=== PATIENT | female | born 1980 | race African-American/Black ===

== ENCOUNTER 2016-07-19 10:48 | Emergency (ER) | payer MEDICAID, OTHER ==
[~2016-07-19] VITALS: Ht 152.4 cm; Wt 134.5 kg
[~2016-07-19 10:48] MED LIST: IBUP800T23 PO; PRED5TAB PO
[2016-07-19 10:50] VITALS: BP 128/76; PULSE 78; RESP 20; TEMP 97.3; O2SAT 100
[2016-07-19] MEDS ORDERED: IBUP800T23 PO (11:23)
[2016-07-19] MEDS ORDERED: PRED5TAB PO (11:23)
--- NOTE | 2016-07-19 11:26 | PD ---
HPI Chief Complaint: Flank/Kidney Pain Time Seen by Provider: 10:58 Travel History International Travel<30 days: No Contact w/Intl Traveler<30days: No Traveled to known affect area: No History of Present Illness HPI 35-year-old female complains of right flank pain and urinary frequency. Patient states that the symptoms started a week ago. Patient states the pain is cramping pain and sharp pain localized to the right flank area. Patient denies any pain radiation. Patient denies any dysuria. Patient denies any fever chills. On a scale of 1-10 the pain is a 7. Patient denies any history kidney stone. Patient denies any vaginal discharge or bleeding. Patient denies any nausea vomiting diarrhea. PFSH Past Medical History Autoimmune Disease: Yes (lupus) Cerebrovascular Accident: No Diabetes: No Diminished Hearing: No Gastrointestinal Disorders: Yes (IBS) GERD: Yes (2000) Musculoskeletal: Yes (bilateral knee arthritis, lupus) Immunizations Current: No Myocardial Infarction: No Seizures: Yes ?: Not LMP: 06/2016 : 2 Para: 1 Miscarriage: 1 Past Surgical History Abdominal Surgery: Yes (FOR IBS 2013) Social History Alcohol Use: No Tobacco Use: No Substance Use: No Allergies-Medications (Allergen,Severity, Reaction): Coded Allergies: Bactrim (Verified Allergy, Severe, 07/19/16) Percocet (Verified Allergy, Intermediate, NAUSEA AFFECTS HEART RATE PER PT , 07/19/16) Penicillin (Verified Adverse Reaction, Severe, HIVES, 07/19/16) Reported Meds & Prescriptions Reported Meds & Active Scripts Active Reported Prednisone 5 Mg Tab 5 Mg PO DAILY Ibuprofen 800 Mg Tab 800 Mg PO TID Review of Systems General / Constitutional: No: Fever Eyes: No: Visual changes HENT: No: Headaches Cardiovascular: No: Chest Pain or Discomfort Respiratory: No: Shortness of Breath Gastrointestinal: No: Abdominal Pain Genitourinary: Positive: Frequency, No: Dysuria Musculoskeletal: No: Pain Skin: No Rash Neurologic: No: Weakness Psychiatric: No: Depression Endocrine: No: Polydipsia Hematologic/Lymphatic: No: Easy Bruising Physical Exam Narrative GENERAL: Well-nourished, well-developed patient. SKIN: Focused skin assessment warm/dry. HEAD: Normocephalic. EYES: No scleral icterus. No injection or drainage. NECK: Supple, trachea midline. No JVD or lymphadenopathy. CARDIOVASCULAR: Regular rate and rhythm without murmurs, gallops, or rubs. RESPIRATORY: Breath sounds equal bilaterally. No accessory muscle use. GASTROINTESTINAL: Abdomen soft, non-tender, nondistended. MUSCULOSKELETAL: No cyanosis, or edema. BACK: Patient has moderate tenderness on palpation right flank area. Neurologic exam normal. Data Data Last Documented VS Vital Signs Date Time Temp Pulse Resp B/P Pulse Ox O2 Delivery O2 Flow Rate FiO2 07/19/16 11:20 16 07/19/16 10:50 97.3 78 128/76 100 Room Air Orders Urinalysis - C+S If Indicated (07/19/16 11:03) Ct Abd/Pel W/O Iv Contrast (07/19/16 11:03) Ed Urine Pregnancytest Poc (07/19/16 11:03) Labs Laboratory Tests Test 07/19/16 11:35 Urine Color YELLOW Urine Turbidity HAZY Urine pH 6.5 Urine Specific [place] 1.029 Urine Protein TRACE mg/dL Urine Glucose (UA) NEG mg/dL Urine Ketones NEG mg/dL Urine Occult Blood NEG Urine Nitrite NEG Urine Bilirubin NEG Urine Urobilinogen LESS THAN 2.0 MG/DL Urine Leukocyte Esterase LARGE Urine RBC 2 /hpf Urine WBC 3 /hpf Urine Squamous Epithelial 11 /hpf Cells Urine Mucus FEW /lpf Microscopic Urinalysis Comment CULT NOT INDICATED MDM Medical Decision Making Medical Screen Exam Complete: Yes Emergency Medical Condition: Yes Interpretation(s) Last Impressions Abdomen/Pelvis CT 07/19/16 1103 Signed Impressions: Service Date/Time: Tuesday, July 19, 2016 12:06 - CONCLUSION: 1. No abnormality is identified to explain the right flank pain. No renal stones are identified and there are no findings to indicate urinary obstruction. 2. Very enlarged lobulated uterus likely containing multiple masses. Although incompletely characterized on this examination of the masses are likely multiple uterine fibroids. Patrick Amezcua MD 12:53 PM. UA is negative. Urine test negative. Differential Diagnosis Differential diagnosis including musculoskeletal, UTI, pyelonephritis, nephrolithiasis. Narrative Course 35-year-old female complains of right flank pain and urinary frequency. Diagnosis Primary Impression: Lumbar strain Qualified Code: S39.012A - Lumbar strain, initial encounter Patient Instructions: General Instructions Additional Instructions: Medications as directed. Follow-up with personal physician. Return if worse. Med/Other Pt SpecificInfo: Prescription(s) given Scripts Methocarbamol (Robaxin)750 Mg Pqp080 Mg PO QID #40 TAB Prov:Jose Tamez MD 07/19/16 Meloxicam (Mobic)15 Mg Tab15 Mg PO DAILY #20 TAB Prov:Jose Tamez MD 07/19/16 Disposition: 01 DISCHARGE HOME Condition: Stable Jose Tamez MD Jul 19, 2016 11:26
[2016-07-19 11:52] LABS: BLOOD, URINE NEG (NEG); COMMENT (UR) CULT NOT INDICATED; CULTURE IF INDICATED CULT NOT INDICATED; GLUCOSE,URINE NEG (NEG); KETONE, URINE NEG (NEG); MUCUS URINE FEW /lpf (OCC); NITRITE,URINE NEG (NEG); PH, URINE 6.5 (5.0-8.5); SQUAMOUS EPITHELIAL CELL URINE 11 /hpf (0-5); URINE COLOR YELLOW (YELLW/STRAW)
--- NOTE | 2016-07-19 12:30 | RADRPT ---
EXAM DATE/TIME: 07/19/2016 12:06 [facility] COMPARISON: No previous studies available for comparison. INDICATIONS : Kidney pain, right flank pain. ORAL CONTRAST: No oral contrast ingested. RADIATION DOSE: 13.41 CTDIvol (mGy) MEDICAL HISTORY : Seizures. Lupus. SURGICAL HISTORY : ENCOUNTER: Initial ACUITY: 1 day PAIN SCALE: 7/10 LOCATION: Right flank TECHNIQUE: Volumetric scanning of the abdomen and pelvis was performed. Using automated exposure control and ad justment of the mA and/or kV according to patient size, radiation dose was kept as low as reasonably achievable to obtain optimal diagnostic quality images. FINDINGS: LOWER LUNGS: The visualized lower lungs are clear. LIVER: Homogeneous density without lesion. There is no dilation of the biliary tree. No calcified gallston es. SPLEEN: Normal size without lesion. PANCREAS: Within normal limits. KIDNEYS: Normal in size and shape. There is no mass, stone, or hydronephrosis. ADRENAL GLANDS: Within normal limits. VASCULAR: There is no aortic aneurysm. BOWEL/MESENTERY: The stomach, small bowel, and colon demonstrate no acute abnormality. There is no free intraperitone al air or fluid. The appendix is normal. ABDOMINAL WALL: Within normal limits. RETROPERITONEUM: There is no lymphadenopathy. BLADDER: No wall thickening or mass. REPRODUCTIVE: The uterus is enlarged with a very lobulated contour likely containing multiple masses. INGUINAL: There is no lymphadenopathy or hernia. MUSCULOSKELETAL: No acute osseous abnormality is identified. CONCLUSION: 1. No abnormality is identified to explain the right flank pain. No renal stones are identified and t here are no findings to indicate urinary obstruction. 2. Very enlarged lobulated uterus likely containing multiple masses. Although incompletely characteri zed on this examination of the masses are likely multiple uterine fibroids. Patrick Amezcua MD on July 19, 2016 at 12:25 Board Certified Radiologist. This report was verified electronically.
[2016-07-19] MEDS ORDERED: MOBI15TA PO (12:55)
[2016-07-19] MEDS ORDERED: ROBA750T PO (12:55)
== END 2016-07-19 14:05 | disposition home or self-care (01) ==
LOC: NEPD 10:48
DX: S39.012A Strain of muscle, fascia and tendon of lower back, initial encounter (principal); X50.9XXA Other and unspecified overexertion or strenuous movements or postures, initial encounter
CPT/HCPCS: 74176; 81001; 84703

== ENCOUNTER 2017-07-30 11:47 | Observation (INO) | payer MEDICAID ==
[~2017-07-30] VITALS: Ht 152.4 cm; Wt 135.0 kg
[~2017-07-30 11:47] MED LIST changes: +IBUP1TAB7 PO; -IBUP800T23 PO; +MOBI15TA PO; +ROBA750T PO
[2017-07-30 11:53] VITALS: BP 144/69; PULSE 91; RESP 20; TEMP 98.3; O2SAT 100
--- NOTE | 2017-07-30 12:24 | PD ---
HPI Chief Complaint: Chest Pain Time Seen by Provider: 12:04 Travel History International Travel<30 days: No Contact w/Intl Traveler<30days: No Traveled to known affect area: No History of Present Illness HPI This is a 36-year-old female with history of lupus, obesity, who presents for evaluation of chest pain. Symptoms started 1 hour prior to arrival and the patient was at [employer] singing. She describes it as a sharp/pressure pain in the substernal region which is intermittent but worse with movement. Currently she is without any pain. She reports some fatigue and nausea as well. She reports that she has had a dry cough for 1 week. She denies fevers, chills, diaphoresis, abdominal pain. She has never had this type of discomfort before. She denies any known history of coronary artery disease. Per chart review it appears that the patient did have a stress test 10 years ago which was normal. She has no other complaints at this time. PFSH Past Medical History Arthritis: Yes (OSTEOARTHRITIS) Autoimmune Disease: Yes (lupus) Cerebrovascular Accident: No Diabetes: No Diminished Hearing: No Gastrointestinal Disorders: Yes (IBS) GERD: Yes (2000) Musculoskeletal: Yes (bilateral knee arthritis, lupus) Immunizations Current: No Myocardial Infarction: No Seizures: Yes : 2 Para: 1 Miscarriage: 1 : 0 Past Surgical History Abdominal Surgery: Yes (FOR IBS 2013) Social History Alcohol Use: No Tobacco Use: No Substance Use: No Allergies-Medications (Allergen,Severity, Reaction): Coded Allergies: sulfamethoxazole (Verified Allergy, Severe, 07/30/17) trimethoprim (Verified Allergy, Severe, 07/30/17) acetaminophen (Verified Allergy, Intermediate, NAUSEA AFFECTS HEART RATE PER PT, 07/30/17) oxycodone (Verified Allergy, Intermediate, NAUSEA AFFECTS HEART RATE PER PT, 07/30/17) penicillin G (Verified Adverse Reaction, Severe, HIVES, 07/30/17) Reported Meds & Prescriptions Reported Meds & Active Scripts Active Review of Systems Except as stated in HPI: all other systems reviewed are Neg Physical Exam Narrative GENERAL: Well-developed well-nourished female no acute distress. BMI 58.1. SKIN: Warm and dry. HEAD: Atraumatic. Normocephalic. EYES: Pupils equal and round. No scleral icterus. No injection or drainage. ENT: No nasal bleeding or discharge. Mucous membranes pink and moist. NECK: Trachea midline. No JVD. CARDIOVASCULAR: Regular rate and rhythm. No murmur appreciated. RESPIRATORY: No accessory muscle use. Clear to auscultation. Breath sounds equal bilaterally. GASTROINTESTINAL: Abdomen soft, non-tender, nondistended. Hepatic and splenic margins not palpable. MUSCULOSKELETAL: No obvious deformities. No clubbing. No cyanosis. No edema. NEUROLOGICAL: Awake and alert. No obvious cranial nerve deficits. Motor grossly within normal limits. Normal speech. PSYCHIATRIC: Appropriate mood and affect; insight and judgment normal. Data Data Last Documented VS Vital Signs Date Time Temp Pulse Resp B/P (MAP) Pulse Ox O2 Delivery O2 Flow Rate FiO2 07/30/17 12:35 100 Room Air 07/30/17 12:35 (100) 07/30/17 12:27 98.2 87 15 Orders Orders Electrocardiogram (07/30/17 12:21) Basic Metabolic Panel (Bmp) (07/30/17 12:21) Ckmb (Isoenzyme) Profile (07/30/17 12:21) Complete Blood Count With Diff (07/30/17 12:21) Magnesium (Mg) (07/30/17 12:21) Prothrombin Time / Inr (Pt) (07/30/17 12:21) Act Partial Throm Time (Ptt) (07/30/17 12:21) Troponin I (07/30/17 12:21) Ecg Monitoring (07/30/17 12:21) Bilateral Bp Monitoring (07/30/17 12:21) Iv Access Insert/Monitor (07/30/17 12:21) Oximetry (07/30/17 12:21) Oxygen Administration (07/30/17 12:21) Aspirin Chew (Aspirin Chew) (07/30/17 12:30) Sodium Chloride 0.9% Flush (Ns Flush) (07/30/17 12:30) Chest, Pa & Lat (07/30/17 12:21) Ed Urine Pregnancytest Poc (07/30/17 12:21) Ondansetron Inj (Zofran Inj) (07/30/17 12:30) Admit Order (Ed Use Only) (07/30/17 13:52) Labs Laboratory Tests Test 07/30/17 12:29 White Blood Count 8.5 TH/MM3 Red Blood Count 4.35 MIL/MM3 Hemoglobin 11.8 GM/DL Hematocrit 35.7 % Mean Corpuscular Volume 82.1 FL Mean Corpuscular Hemoglobin 27.2 PG Mean Corpuscular Hemoglobin Concent 33.2 % Red Cell Distribution Width 17.5 % Platelet Count 339 TH/MM3 Mean Platelet Volume 8.5 FL Neutrophils (%) (Auto) 64.2 % Lymphocytes (%) (Auto) 25.7 % Monocytes (%) (Auto) 8.0 % Eosinophils (%) (Auto) 1.7 % Basophils (%) (Auto) 0.4 % Neutrophils # (Auto) 5.5 TH/MM3 Lymphocytes # (Auto) 2.2 TH/MM3 Monocytes # (Auto) 0.7 TH/MM3 Eosinophils # (Auto) 0.1 TH/MM3 Basophils # (Auto) 0.0 TH/MM3 CBC Comment DIFF FINAL Differential Comment Prothrombin Time 10.1 SEC Prothromb Time International Ratio 1.0 RATIO Activated Partial Thromboplast Time 26.8 SEC Blood Urea Nitrogen 8 MG/DL Creatinine 0.86 MG/DL Random Glucose 84 MG/DL Calcium Level 8.9 MG/DL Magnesium Level 2.2 MG/DL Sodium Level 139 MEQ/L Potassium Level 3.9 MEQ/L Chloride Level 104 MEQ/L Carbon Dioxide Level 26.9 MEQ/L Anion Gap 8 MEQ/L Estimat Glomerular Filtration Rate 91 ML/MIN Total Creatine Kinase 59 U/L Troponin I LESS THAN 0.02 NG/ML MDM Medical Decision Making Medical Screen Exam Complete: Yes Emergency Medical Condition: Yes Medical Record Reviewed: Yes Differential Diagnosis Costochondritis, pleurisy, pericarditis, myocarditis, acute coronary syndrome, angina, pulmonary embolism Narrative Course Patient was placed on ECG monitoring pulse oximetry. A 12-lead EKG was obtained revealing sinus rhythm with borderline left axis deviation. Lab work, chest x-ray been ordered. Aspirin has been ordered. Chest x-ray is normal. Initial lab work is reassuring. At this point time, given her risk factors of obesity and lupus, the plan will be to admit the patient into the chest pain center for serial cardiac enzymes and rule out purposes. She is agreeable. Diagnosis Primary Impression: Chest pain Admitting Information Admitting Physician Requests: Moreno Stafford Jul 30, 2017 12:24
[2017-07-30 12:27] VITALS: BP 138/81; PULSE 87; RESP 15; TEMP 98.2; O2SAT 99
[2017-07-30] MEDS ORDERED: ONDANSETRON HCL 4 MG/2 ML VIAL IV PUSH ONE (12:30)
[2017-07-30] MEDS ORDERED: SODIUM CHLORIDE 0.9% FLUSH 10 ML FLUSH IVF PRN (12:30)
[2017-07-30] MEDS ORDERED: ASPIRIN 81 MG CHEW TAB PO ONE (12:30)
[2017-07-30 12:46] LABS: AUTOMATED NEUTROPHIL # 5.5 TH/MM3 (1.8-7.7); BASOPHIL % 0.4 % (0.0-2.0); EOSINOPHIL # 0.1 TH/MM3 (0-0.4); EOSINOPHIL % 1.7 % (0.0-4.0); HEMATOCRIT 35.7 % (35.0-46.0); HEMOGLOBIN 11.8 GM/DL (11.6-15.3); LYMPH % 25.7 % (9.0-44.0); LYMPHOCYTE # 2.2 TH/MM3 (1.0-4.8); MEAN CELL VOLUME 82.1 FL (80.0-100.0); MEAN CORPUSCULAR HEMOGLOBIN 27.2 PG (27.0-34.0); MEAN CORPUSCULAR HGB CONC 33.2 % (32.0-36.0); MEAN PLATELET VOLUME 8.5 FL (7.0-11.0); MONOCYTE # 0.7 TH/MM3 (0-0.9); NEUT % 64.2 % (16.0-70.0); PLATELET COUNT 339 TH/MM3 (150-450); RED BLOOD COUNT 4.35 MIL/MM3 (4.00-5.30); RED CELL DISTRIBUTION WIDTH 17.5 % (11.6-17.2); WHITE BLOOD COUNT 8.5 TH/MM3 (4.0-11.0)
[2017-07-30 13:03] LABS: BICARBONATE 26.9 MEQ/L (21.0-32.0); BLOOD UREA NITROGEN 8 MG/DL (7-18); CALCIUM 8.9 MG/DL (8.5-10.1); CHLORIDE 104 MEQ/L (98-107); CREATININE 0.86 MG/DL (0.50-1.00); GLOMERULAR FILTRATION RATE 91 ML/MIN (>89); GLUCOSE,RANDOM 84 MG/DL (74-106); MAGNESIUM 2.2 MG/DL (1.5-2.5); SODIUM (NA) 139 MEQ/L (136-145)
[2017-07-30 13:05] LABS: PROTHROMBIN TIME - PATIENT 10.1 SEC (9.8-11.6)
[2017-07-30 13:07] LABS: TROPONIN I LESS THAN 0.02 NG/ML (0.02-0.05)
--- NOTE | 2017-07-30 13:29 | RADRPT ---
EXAM DATE/TIME: 07/30/2017 13:13 [facility] COMPARISON: CHEST PA & LAT, August 04, 2014, 13:41. INDICATIONS : Mid sternal chest pain MEDICAL HISTORY : None. SURGICAL HISTORY : None. ENCOUNTER: Initial ACUITY: 1 day PAIN SCORE: 0/10 LOCATION: chest FINDINGS: PA and lateral views of the chest demonstrate the lungs to be symmetrically hypoinflated without evid ence of mass, infiltrate or effusion. The cardiomediastinal contours are unremarkable. Osseous stru ctures are intact. CONCLUSION: Hypoinflation with no acute cardiopulmonary process. Shantanu Peña MD on July 30, 2017 at 13:26 Board Certified Radiologist. This report was verified electronically.
[2017-07-30 14:05] VITALS: O2SAT 99
[2017-07-30] MEDS ORDERED: ONDANSETRON HCL 4 MG/2 ML VIAL IV PUSH PRN (14:15)
[2017-07-30] MEDS ORDERED: NITROGLYCERIN 0.4 MG SL 25 TABS/BTL SL PRN (14:15)
--- NOTE | 2017-07-30 14:41 | HHI.HP ---
HPI Primary Care Physician Isac Hinton DO Chief Complaint Chest pain History of Present Illness 36 year old female with history of lupus presents to ER for further evaluation of chest pain. Onset this morning while signing at [employer]. Location left anterior chest. Characterized quick onset, sharp pain. No radiation. Duration 10 minutes. Associated symptoms nausea, mild dyspnea, and dizziness. Taking a deep breath and movement made pain worse. No known precipitating or relieving factors. Discomfort not similar to past lupus flares. No recent illness. Review of Systems General: No fatigue,weakness, fever, chills, recent illness, or change in appetite. HEENT: No CARRENO, no nasal congestion or drainage, no dysphasia CV: As stated above. No current pressure and pain. No palpitations, intermittent leg pain, or dizziness. RESP: No SOB, cough, wheeze, or recent illness. GI: No nausea, vomiting, bowel changes, diarrhea, constipation, pain, distention , melena, or blood in the stool. : No dysuria, urgency, frequency EXT: No lower leg edema, no paraesthesias MS: No discomfort, injury, or change in ROM NEURO: No difficulty with balance, LOC, motor/sensory deficits PSYCH: No anxiety, depression SKIN: No rashes, no concerning lesions Past Family Social History Allergies: Coded Allergies: sulfamethoxazole (Verified Allergy, Severe, 07/30/17) trimethoprim (Verified Allergy, Severe, 07/30/17) acetaminophen (Verified Allergy, Intermediate, NAUSEA AFFECTS HEART RATE PER PT, 07/30/17) oxycodone (Verified Allergy, Intermediate, NAUSEA AFFECTS HEART RATE PER PT, 07/30/17) penicillin G (Verified Adverse Reaction, Severe, HIVES, 07/30/17) Past Medical History Lupus, OA, bilateral knee pain Past Surgical History Knee surgery Reported Medications Reported Meds & Active Scripts Active Prednisone low dose PRN for lupus flares Active Ordered Medications Current Medications Medications (Trade) Dose Ordered Sig/Terrell Route Start Time Stop Time Status Last Admin (NS Flush) 2 ml UNSCH PRN IVF 07/30/17 12:30 07/30/17 12:36 (NS Flush) 2 ml BID IV FLUSH 07/30/17 21:00 (Zofran Inj) 4 mg Q6H PRN IV PUSH 07/30/17 14:15 (Nitrostat Sl) 0.4 mg Q5M PRN SL 07/30/17 14:15 (Aspirin) 325 mg DAILY PO 07/31/17 09:00 Family History Noncontributory for early onset cardiovascular disease. Social History No known CAD, diabetes, hypertension, or hyperlipidemia. Lifelong nonsmoker. Rare glass of wine. Mother of one daughter age 14. Unemployed. Past cardiac testing Remote exercise testing in early 20s, reported to be unremarkable. Physical Exam Vital Signs Vital Signs Date Time Temp Pulse Resp B/P (MAP) Pulse Ox O2 Delivery O2 Flow Rate FiO2 07/30/17 14:05 99 21 07/30/17 12:35 100 Room Air 07/30/17 12:35 (100) Room Air 07/30/17 12:27 98.2 87 15 138/81 (100) 99 Room Air 07/30/17 12:22 84 17 99 Room Air 07/30/17 11:53 98.3 91 20 144/69 (94) 100 Physical Exam GENERAL: Alert WN, WD, NAD, pleasant, morbidly obese -Tristanian female EYES: Sclera clear, conjunctiva without injection, pupils equal and round ENT: Mucous membranes pink and moist CV: RRR, without murmur, rub, gallop, no JVD, S1-S2 no S3-S4. No carotid bruits. Chest wall pain reproduced with palpation. RESP: Clear lungs throughout bilateral, no crackles, wheeze, rhonchi, symmetrical chest rise, nonlabored, able to speak in full sentences ABD: Soft, NT, ND, no masses, positive bowel tones EXT: Pulses +2x4, trace pedal edema MS: Normal tone x4 extremities, no obvious deformities, full range of motion NEURO: CN II through CN XII grossly intact, motor strength 5/5 PSYCH: A+O x3, pleasant affect, appropriate speech, mood, insight and judgment SKIN: Normal turgor, normal texture, no lesions, no rashes Laboratory Laboratory Tests Test 07/30/17 12:29 07/30/17 14:25 White Blood Count 8.5 Red Blood Count 4.35 Hemoglobin 11.8 Hematocrit 35.7 Mean Corpuscular Volume 82.1 Mean Corpuscular Hemoglobin 27.2 Mean Corpuscular Hemoglobin Concent 33.2 Red Cell Distribution Width 17.5 Platelet Count 339 Mean Platelet Volume 8.5 Neutrophils (%) (Auto) 64.2 Lymphocytes (%) (Auto) 25.7 Monocytes (%) (Auto) 8.0 Eosinophils (%) (Auto) 1.7 Basophils (%) (Auto) 0.4 Neutrophils # (Auto) 5.5 Lymphocytes # (Auto) 2.2 Monocytes # (Auto) 0.7 Eosinophils # (Auto) 0.1 Basophils # (Auto) 0.0 CBC Comment DIFF FINAL Differential Comment Prothrombin Time 10.1 Prothromb Time International Ratio 1.0 Activated Partial Thromboplast Time 26.8 Blood Urea Nitrogen 8 Creatinine 0.86 Random Glucose 84 Calcium Level 8.9 Magnesium Level 2.2 Sodium Level 139 Potassium Level 3.9 Chloride Level 104 Carbon Dioxide Level 26.9 Anion Gap 8 Estimat Glomerular Filtration Rate 91 Total Creatine Kinase 59 Troponin I LESS THAN 0.02 Result Diagram: 07/30/17 1229 07/30/17 1229 Imaging Last 48 hours Impressions Chest X-Ray 07/30/17 1221 Signed Impressions: Service Date/Time: Sunday, July 30, 2017 13:13 - CONCLUSION: Hypoinflation with no acute cardiopulmonary process. Shantanu Peña MD Course EKG NSR, borderline left axis, no st t segment changes Caprini VTE Risk Assessment Caprini VTE Risk Assessment: No/Low Risk (score <= 1) Caprini Risk Assessment Model Point Value = 1 Point Value = 2 Point Value = 3 Point Value = 5 Age 41-60 Minor surgery BMI > 25 kg/m2 Swollen legs Varicose veins or History of unexplained or recurrent spontaneous Oral contraceptives or hormone replacement Sepsis (< 1 month) Serious lung disease, including pneumonia (< 1 month) Abnormal pulmonary function Acute myocardial infarction Congestive heart failure (< 1 month) History of inflammatory bowel disease Medical patient at bed rest Age 61-74 Arthroscopic surgery Major open surgery (> 45 min) Laparoscopic surgery (> 45 min) Malignancy Confined to bed (> 72 hours) Immobilizing plaster cast Central venous access Age >= 75 History of VTE Family history of VTE Factor V Leiden Prothrombin [id number] Lupus anticoagulant Anticardiolipin antibodies Elevated serum homocysteine Heparin-induced thrombocytopenia Other congenital or acquired thrombophilia Stroke (< 1 month) Elective arthroplasty Hip, pelvis, or leg fracture Acute spinal cord injury (< 1 month) Prophylaxis Regimen Total Risk Factor Score Risk Level Prophylaxis Regimen 0-1 Low Early ambulation 2 Moderate Order ONE of the following: *Sequential Compression Device (SCD) *Heparin 5000 units SQ BID 3-4 Higher Order ONE of the following medications: *Heparin 5000 units SQ TID *Enoxaparin/Lovenox 40 mg SQ daily (WT < 150 kg, CrCl > 30 mL/min) *Enoxaparin/Lovenox 30 mg SQ daily (WT < 150 kg, CrCl > 10-29 mL/min) *Enoxaparin/Lovenox 30 mg SQ BID (WT < 150 kg, CrCl > 30 mL/min) AND/OR *Sequential Compression Device (SCD) 5 or more Highest Order ONE of the following medications: *Heparin 5000 units SQ TID (Preferred with Epidurals) *Enoxaparin/Lovenox 40 mg SQ daily (WT < 150 kg, CrCl > 30 mL/min) *Enoxaparin/Lovenox 30 mg SQ daily (WT < 150 kg, CrCl > 10-29 mL/min) *Enoxaparin/Lovenox 30 mg SQ BID (WT < 150 kg, CrCl > 30 mL/min) AND *Sequential Compression Device (SCD) Assessment and Plan Assessment and Plan #1 Atypical chest pain-admitted to chest pain center. Seen and evaluated by Dr. Pearce. Ruled out with 2 sets of EKGs and cardiac enzymes. Recommended chemical cardiac testing in morning due to reported chronic bilateral knee pain and concern she would not be able to walk safety on treadmill. Patient insists on treadmill therefore will attempt exercise testing this afternoon. Discussed in length if unable to complete exercise testing a chemical test would be indicated. Reassurance provided discomfort appears to be musculoskeletal chest wall pain. Upon discharged discussed using warm heat to affected area and over the counter medications such as Aleve or Motrin. Encouraged following up with PCP as well. Verbalized understanding and agreeable to plan of care. Sommer Farah Jul 30, 2017 14:41
[2017-07-30 15:18] VITALS: BP 147/83; PULSE 75; RESP 18; TEMP 99.4; O2SAT 97
--- NOTE | 2017-07-30 15:21 | EKG ---
Date Performed: 07/30/2017 Time Performed: 12:04:45 PTAGE: 36 years EKG: Sinus rhythm BORDERLINE LEFT AXIS DEVIATION MODERATE VOLTAGE CRITERIA FOR LVH, CONSIDER NORMAL VARIANT NONSPECIFI C T-WAVE ABNORMALITY BORDERLINE ECG PREVIOUS TRACING : 07/30/2017 10.59 Since previous tracing, no significant change noted DOCTOR: Shen Pearce Interpretating Date/Time 07/30/2017 15:21:00
[2017-07-30 16:32] LABS: TROPONIN I LESS THAN 0.02 NG/ML (0.02-0.05)
--- NOTE | 2017-07-30 16:38 | HHI.DCPOC ---
Discharge Care Plan Diagnosis: (1) Musculoskeletal chest pain (2) History of lupus Goals to Promote Your Health * To prevent worsening of your condition and complications * To maintain your health at the optimal level Directions to Meet Your Goals Take your medications as prescribed Follow your dietary instruction Follow activity as directed Keep your appointments as scheduled Take your immunizations and boosters as scheduled If your symptoms worsen call your PCP, if no PCP go to Urgent Care Center or Emergency Room Smoking is Dangerous to Your Health. Avoid second hand smoke Call the 24-hour hour crisis hotline for domestic abuse at Sommer Farah Jul 30, 2017 16:38
--- NOTE | 2017-07-30 16:42 | TR ---
Date Performed: 07/30/2017 Time Performed: 16:06:20 DOCTOR: Shen Pearce DRUG LIST: CLINICAL HISTORY: CHEST PAIN REASON FOR TEST: Chest pain REASON FOR ENDING: OBSERVATION: CONCLUSION: Barrie protocol completed. Stopped sec to reaching target heart rate and leg fatigue. Maximum NO=433 Target HR Achieved=87.0% Maximum BP=Total Exercise Time=3:15. No reprod chest discomf ort. No ectopy. No st t segment changes to sugg ischemia. Poor exercise tolerance. Normal bp response . Recovery quick and unremarkable. COMMENTS: Conclusion: Normal treadmill exercise. No evidence of ischemia.
[2017-07-30] MEDS ORDERED: SODIUM CHLORIDE 0.9% FLUSH 10 ML FLUSH IV FLUSH SCH (21:00)
[2017-07-31] MEDS ORDERED: ASPIRIN 325 MG TAB PO SCH (09:00)
--- NOTE | 2017-07-31 12:44 | EKG ---
Date Performed: 07/30/2017 Time Performed: 14:25:58 PTAGE: 36 years EKG: Sinus rhythm BORDERLINE LEFT AXIS DEVIATION MODERATE VOLTAGE CRITERIA FOR LVH, CONSIDER NORMAL VARIANT BORDERLINE ECG PREVIOUS TRACING : 07/30/2017 12.04 Since previous tracing, no significant change noted DOCTOR: Clifford Wu Interpretating Date/Time 07/31/2017 12:43:17
== END 2017-07-30 18:40 | disposition home or self-care (01) ==
LOC: NEPC 11:47 → NEDH 13:53 → NEPFCDU 15:12
DX: R07.89 Other chest pain (principal); R94.31 Abnormal electrocardiogram [ECG] [EKG]; M32.9 Systemic lupus erythematosus, unspecified; K21.9 Gastro-esophageal reflux disease without esophagitis; M17.0 Bilateral primary osteoarthritis of knee
CPT/HCPCS: 71046; 80048; 82550; 83735; 84484; 84703; 85025; 85610; 85730; 93005; 93017; 96374; 99285; G0378; J2405